=== PATIENT | female | born 1975 | race Caucasian/White ===

== ENCOUNTER 2016-10-11 12:47 | Emergency (ER) | payer BC ==
[~2016-10-11] VITALS: Ht 165.1 cm; Wt 88.6 kg
[2016-10-11 12:48] VITALS: BP 115/72
[2016-10-11] MEDS ORDERED: CIPRODEX AD ×2 (13:14→13:36)
[2016-10-12] MEDS ORDERED: TYLE325T5 PO (05:16)
[2016-10-12] MEDS ORDERED: IBUP-1114 PO (05:16)
[2016-10-12] MEDS ORDERED: NORCOTAB PO (06:21)
== END 2016-10-11 13:42 | disposition home or self-care (01) ==
LOC: M ED 12:47
DX: H60.91 Unspecified otitis externa, right ear (principal); Z88.0 Allergy status to penicillin

== ENCOUNTER 2016-10-12 05:05 | Emergency (ER) | payer BC ==
[~2016-10-12] VITALS: Ht 165.1 cm; Wt 88.6 kg
[~2016-10-12 05:05] MED LIST: CIPRODEX AD
[2016-10-12] MEDS ORDERED: IBUP-1114 PO (05:16)
[2016-10-12] MEDS ORDERED: TYLE325T5 PO (05:16)
[2016-10-12] MEDS ORDERED: NORCOTAB PO (06:21)
[2016-10-12] MEDS ORDERED: NORCO 5/325MG TABLET (BULK FOR ED) PO ONE (06:30)
[2016-10-12 06:40] VITALS: BP 119/79
== END 2016-10-12 06:44 | disposition home or self-care (01) ==
LOC: M ED 05:05
DX: H60.91 Unspecified otitis externa, right ear (principal); H92.01 Otalgia, right ear; E06.3 Autoimmune thyroiditis; F41.9 Anxiety disorder, unspecified; F32.9 Major depressive disorder, single episode, unspecified; Z88.0 Allergy status to penicillin